=== PATIENT | female | born 2000 | race Caucasian/White ===

== ENCOUNTER 2022-04-11 14:37 | Outpatient (CLI) | payer MEDICAID, SELFPAY ==
--- NOTE | 2022-04-13 12:07 | W.PM.LAC.MC ---
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 Cm Jaundice: No Reason for Consult Reason for Consult: using nipple shield, slips off when mom doesn't use it Past Experience Past Experience: No Current Frequency of Day Feedings: every 2 - 3 hours around the clock Both Breasts: Yes Suck: fairly strong Latch: fairly wide Length of Time: 15 - 60 minutes Goals: as long as I can Pumping Pumping: Yes (when at work, randomly when at home) Quantity Pumped: 1 - 3 oz total each time Supplementing EMB Supplement: Yes (when mom is at work, when home she supplements after about 3 feedings/day) Formula Supplement: No (not for about the past week) Baby Elimination Number of Wet Diapers a Day: every feeding Number of BM a Day: every other feeding Breast/Nipple Condition Breast Information: WNL Engorgement: No Maternal Nipple Condition - Left: Short and Flat Nipple Maternal Nipple Condition - Right: Short and Flat Nipple Sore Nipples: No Onsite Pre-Feed weight: 4.236 kg Post-Feed weight: 4.302 kg Milk Transferred (mL): 66 Pre-Nursing Left Nipple: Within Normal Limits Pre-Nursing Right Nipple: Within Normal Limits Post-Nursing Left Nipple: Within Normal Limits Post-Nursing Right Nipple: Within Normal Limits Assessments/Interventions Assessments/Interventions: Assessments/Interventions Assessments/Interventions: Met with mom and this now 3 week old ex- term AGA baby for consult.? Mom reports she nursed for about the first week he was home, but one day he just started refusing to nurse.? For the next week she bottle fed a combination of EBM and formula but felt he was in increasing amounts of pain, for about the last week she's been nursing with a nipple shield then supplementing if needed with EBM.? States he's nursing every 2 - 3 hours for up to 60 minutes, then about three times/day she's supplementing with 1 - 2 oz (each time).? She uses the Haakaa during nursing sessions and the electric pump on occasion.? States she pumps between 1 - 3 oz total each time. Breasts WNL- symmetrical with rounded lower quadrants.? Nipples are flat and somewhat short, but amena with stimulation; no damage noted.? Baby has gained 42 grams/day since his last visit on 04/09 (55 grams/day since his visit on 03/22) and he's in the 60th percentile on the growth chart.? Per mom his delivery was uneventful- no caput/cephalohematoma, facial bruising, significant head molding, or shoulder dystocia.? States he seems to have good ROM when turning his head and moving his extremities.? His upper lip is easy to flange and he has a strong suck on a finger, however his tongue does not always extend past the gum line and he may have a posterior frenulum.? Mom reports he was dx'd with reflux on 04/09 and started on famotidine.? Mom attempted to latch baby in the cradle hold on the right side without the shield and was unsuccessful.? When she was verbally coached to hold him in the cross cradle position and shape her breast she was able to latch him without the nipple shield.? He nursed for several minutes before coming off, then had trouble re-latching without the shield.? When he finished on the right side she was able to latch him on the left starting with the shield, then removing it after a few minutes.? In total he nursed 45 minutes, transferring 66 ml.? He did not seem to be uncomfortable nursing today and had very little spit-up. ? Plan: 1. Continue to practice nursing on both sides every 2 - 3 hours (ok to go up to 4 hours overnight).? Can try starting with the shield then taking it off, or he may latch without it initially and need it later on.? Important not to let baby or mom get too frustrated.? Suggested keeping the nursing sessions to no longer than 40 minutes.? Reviewed that weaning from a nipple shield can be a long process. 2. OK to use the Haakaa while nursing.? Suggested she use the electric pump when at work and at least once daily so she has a supply for the caregiver.? Other times to pump would be when baby doesn't have a good nursing session or if she doesn't see milk in the shield. 3. Continue to supplement with EBM if he still seems hungry after nursing. 4. Will f/u with Dr. Cm for a 2 month [facility] and I will f/u by phone on 04/18/22.
--- OUTSIDE RECORDS SUMMARY | 2022-05-08 11:48 | XMS_ITS | Clinical Summary ---
:2000 Author Organization [facility] Address [address] [place] [address] Care Team Providers Name Role Phone Unavailable Primary Care Provider Unavailable Source Comments You are receiving this document as you are listed as the primary care provider,follow-up provider, or the patient has been referred to you for consultation.This is in compliance with the Medicare and Medicaid EHR Incentive Program,which states Providers who transition their patient to another setting of careor provider of care or refers their patient to another provider of care shouldprovide summarycare record for each transition of care or referral. [facility] Allergies Active Allergy Reactions Severity Noted Date Comments Polyethylene Glycol Hives High 01/30/2021 Medications No known medications Active Problems No known active problems Social History Tobacco Use Types Packs/Day Years Used Date Smoking Tobacco: Some Days Smokeless Tobacco: Current Sex Assigned at Date Recorded Not on file Last Filed Vital Signs Vital Sign Reading Time Taken Comments Blood Pressure 129/58 01/30/2021 3:28 PM CDT Pulse 118 01/30/2021 3:28 PM CDT Temperature 36.7 ??C (98 ??F) 01/30/2021 3:28 PM CDT Respiratory Rate 16 01/30/2021 3:28 PM CDT Oxygen Saturation 100% 01/30/2021 3:28 PM CDT Inhaled Oxygen Concentration - - Weight - - Height - - Body Mass Index - - Plan of Treatment Health Maintenance Due Date Last Done Comments Cervical Cancer Screening Due 1999 Chlamydia 1999 Hep C Screening (Preventive 1999 Services) COVID-19 Vaccine (#1) 02/21/2000 Pneumococcal (1 - PCV) 2005 HPV Vaccine (1 - 2-dose series) 2010 HIV Screening (Preventive 2015 Services) Adult Preventive Visit 2017 DTaP/Tdap/Td (1 - Tdap) 2018 Influenza (#1) 2022 Zoster/Shingles (1 of 2) 2049 HepA Aged Out No longer eligib le based on patient's age to complete this topic HepB Aged Out No longer eligib le based on patient's age to complete this topic Hib Aged Out No longer eligib le based on patient's age to complete this topic IPV (Polio) Aged Out No longer eligib le based on patient's age to complete this topic MCV4 Aged Out No longer eligib le based on patient's age to complete this topic
--- OUTSIDE RECORDS SUMMARY | 2022-05-08 11:48 | XMS_ITS | Encounter Summary ---
:2000 Author Organization [facility] Address [address], [place] [address] Care Team Providers Name Role Phone Unavailable Primary Care Provider Unavailable Reason for Visit Reason Comments Nausea Neck Pain NUMBNESS Encounter Details Date Type Department Care Team Description 01/30/2021 Hospital Encounter [place] [id number] Urgent Francisco Ag Nausea; Care MD [place] [address] [facility] [address] [place], [place] [phone] [id number] (Wo rk) Social History Tobacco Use Types Packs/Day Years Used Date Smoking Tobacco: Some Days Smokeless Tobacco: Current Sex Assigned at Date Recorded Not on file documented as of this encounter Last Filed Vital Signs Vital Sign Reading Time Taken Comments Blood Pressure 129/58 01/30/2021 3:28 PM CDT Pulse 118 01/30/2021 3:28 PM CDT Temperature 36.7 ??C (98 ??F) 01/30/2021 3:28 PM CDT Respiratory Rate 16 01/30/2021 3:28 PM CDT Oxygen Saturation 100% 01/30/2021 3:28 PM CDT Inhaled Oxygen Concentration - - Weight - - Height - - Body Mass Index - - documented in this encounter ED Notes Francisco Ag MD - 01/30/2021 3:53 PM CDT Was in the car driving - nausea, neck pain. Started feeling numbness in face and lips. Hands numb and tingly. Was breathing fast - feels better now as breathing is under control. Nausea is decreased. Arms are still numb feeling. SUBJECTIVE: Samanta Harden is a 20 y.o. female here with a friend, telling me that about 15 minutes ago while driving she started feeling nausea, got worried, develop some neck pain, started breathing fast with tingling and numbness in both upper extremities. She is better now. Has not had before. No headache, shortness of breath, chest pain. Posterior neck pain more than headache. Allergies: Peg-8 beeswax [polyethylene glycol] Past medical history: has no past medical history on file. Medications: No current facility-administered medications for this encounter. No current outpatient medications on file. OBJECTIVE: Vital Signs: BP 129/58 (BP Location: Right Arm, BP Cuff Size: Regular) Pulse (!) 118 Temp 36.7 ??C (98 ??F) (Oral) Resp 16 LMP 01/02/2021 SpO2 100% EXAM: She is worried but does not look physically ill. Normal skin color. Vitals as above. Heart with regular rhythm, mild tachycardia. Neurologic exam is nonfocal. Specifically, cranial nerves 2-12 grossly intact, neck is supple, she is not photophobic, speech is normal, strength and deep tendon reflexes grossly normal with good symmetry, gait is normal. ASSESSMENT: In my estimation we are looking at an anxiety reaction. Most likely tingling is secondary to hyperventilation. We talked about the possibility of in the context of her nausea and she said she will check it at home. PLAN: If symptoms do not continue to improve tonight and certainly tomorrow she needs further evaluation. Otherwise at any point with any new or worse symptoms she will be seen in the emergency department. The patient was discharged ambulatory and in stable condition. documented in this encounter Plan of Treatment Not on filedocumented as of this encounter Visit Diagnoses Diagnosis Nausea Nausea alone Tingling Disturbance of skin sensation Triage Assessment Note - Randi Antonio RN - 01/30/2021 3:28 PM CDT Was in the car driving - nausea, neck pain. Started feeling numbness in face and lips. Hands numb and tingly. Was breathing fast - feels better now as breathing is under control. Nausea is decreased. Arms are still numb feeling. documented in this encounter
== END 2022-04-11 14:38 | disposition home or self-care (01) ==
PROVIDERS: Visit Provider Advanced Practice Midwife
DX: Z39.1 Encounter for care and examination of lactating mother (principal)
CPT/HCPCS: 99211

== ENCOUNTER 2024-10-28 18:41 | Emergency (ER) | payer MEDICAID, SELFPAY ==
--- OUTSIDE RECORDS SUMMARY | 2024-10-28 18:42 | XMS_ITS | Clinical Summary ---
Demographics Address [address] [place] [address] Phone Email Address Preferred Language Unknown Marital Status Unknown or other Sabianist Affiliation Unknown Race Unknown Ethnic Group Unknown Author Organization [facility] Address [address] , [address] [place] [address] Phone Care Team Providers Care Claim Clerk Name Role Phone 4CareTeamCoordinator, 4CareTeamCoordinator Unava ilable Unavailable Conditions or Problems Problem Name Problem Code Onset Date Status Entry Date Provider Comment Standard Description Annotate Chronic migraine [id number] (SNOMED CT) Active Russell Gomez MD Transformed migraine Medications Medication Instructions Start Date Stop Date Generic Name NDC Provider Observed no known medication s at Medications Administered No information available. Allergies, Adverse Reactions, Alerts Allergy Name Reaction Description Start Date Severity Statu s Provider NO KNOWN DRUG ALLERGIES Mild Activ e Russell Gomez MD Results Date Name Value Unit Range Flag Description Office Visit: mail NKMED T Documentation of current medications (procedure) MEDS REVIEW Done Documenta tion of current medications (procedure) Internal Other: Verbal Autho rization/Emergency Contact - OBS VERBAL_EMER DONE Verbal au thorization and emergency contact Internal Other: Authorizatio n - OBS [email or web address] Yes Authoriza tion: Release of Information - Authorize [facility] - Payment and Healthcare Operations ROIAUTHOTHER Yes Authoriz ation: Release of Information - Authorize Others/Insurance - Payment and Healthcare Operations HIECONSENT Yes Consent To Release information to the Health Information Exchange (HIE) [email or web address] Yes Authorizat ion: Authorization for [facility] to leave messages, voicemail, send text messages, send emails AUTHRELHCARE Yes Authoriz ation: Release/Retrieval of Information to/from Healthcare Facilities, Pharmacy Benefit Payers and Providers AUTHPRIVPRAC Yes Authoriz ation: Notice of privacy practices AUTHBENEFIT Yes Authoriza tion: Assignment of Benefits and Payment Agreement Plan of Care Type Date Detail Pending order Follow up teleme dicine Pending Order exclud ed from report: Pending order Follow up teleme dicine Pending order Patient Instruct ions Procedures Code Procedure Name Date Entry Date ORDERS Follow up telemedicine 01/03 ORDERS Patient Instructions [facility]-[id number] Documentation of current medicatio ns CPT-49128 Occipital nerve bloc k (Greater ONB) unilateral CPT-97297 Lesser ONB/ 3rd ONB/ Auricular, unilatera l CPT-66502 Trigeminal nerve blo ck/ Supraorbital/ Supratrochlear x1 Vital Signs No information available. Immunizations No information available. Advance Directives No information available.
--- OUTSIDE RECORDS SUMMARY | 2024-10-28 18:42 | XMS_ITS | Clinical Summary ---
Author Organization [facility] Address [address], [place] [address] Care Team Providers Care Parts Technician Name Role Phone Unavailable Primary Care Provider Unavailabl e Source Comments You are receiving this document as you are listed as the primary care provider,follow-up provider, or the patient has been referred to you for consultation.This is in compliance with the Medicare andMedicaid EHR Incentive Program,which states Providers who transition their patient to another setting of careor provider of care or refers their patient to another provider of care shouldprovide summary care record for each transition of care or referral. [facility] Allergies Active Allergy Reactions Criticality Noted Date Comments Polyethylene Glycol Hives High 01/30/2021 Medications No known medications Active Problems No known active problems Social History Tobacco Use Types Packs/Day Years Used Date Smoking Tobacco: Some Days Smokeless Tobacco: Current Sex and Gender Information Value Date Recorded Sex Assigned at Not on file Gender Identity Not on file Sexual Orientation Not on file Last Filed Vital Signs Vital Sign Reading Time Taken Comments Blood Pressure 129/58 01/30/2021 3:28 PM CDT Pulse 118 01/30/2021 3:28 PM CDT Temperature 36.7 C (98 F) 01/30/2021 3:28 PM CDT Respiratory Rate 16 01/30/2021 3:28 PM CDT Oxygen Saturation 100% 01/30/2021 3:28 PM CDT Inhaled Oxygen Concentration - - Weight - - Height - - Body Mass Index - - Plan of Treatment Health Maintenance Due Date Last Done Comments Cervical Cancer Screening Due 1999 Chlamydia 1999 Hep C Screening (Preventive Services) 1999 Pneumococcal (1 - PCV) 2005 HPV Vaccine (1 - 3-dose series) 2014 HIV Screening (Preventive Services) 2015 Adult Preventive Visit 2017 DTaP/Tdap/Td (1 - Tdap) 2018 HepB (1) 2018 COVID-19 Vaccine (1 - 2023-2 5 season) 2024 Influenza (#1) 2024 Zoster/Shingles (1 of 2) 2049 HepA Aged Out No longer eligi ble based on patient's age to complete this topic Hib Aged Out No longer eligi ble based on patient's age to complete this topic IPV (Polio) Aged Out No longer eligi ble based on patient's age to complete this topic MCV4 Aged Out No longer eligi ble based on patient's age to complete this topic
[2024-10-28 18:57] VITALS: BP 137/88; PULSE 111; RESP 18; TEMP 36.6; O2SAT 96; BMI 24.4
--- NOTE | 2024-10-28 19:28 | ED.GENADULT ---
HPI - General Adult General Chief complaint: Unspecified Complaint, Adult Stated complaint: rectal bleeding Time Seen by Provider: 10/28/24 18:42 History of Present Illness HPI narrative: This 24-year-old female comes in reporting bright red blood from the rectum today. She thought that she was starting to have her menses but realized that this was leaking from her rectum. This was not part of a bowel movement but she does report bright red blood at the rectum when wiping. She does currently not have any abdominal pain but states that she does have worsening pains especially related to menses. She has not had any fevers and does not report any intolerance to food. She states that she has had some dysuria symptoms more recently with a feeling like she is not completely voiding her urine. She states that she has been having other occasions where the there is blood that she is wiping from her bottom coming from the rectum. Related Data Previous Rx's ?Medication ?Instructions ?Recorded hydrocortisone 2.5 %-pramoxine 1 % 1 applic topical BID PRN #59 mL 10/28/24 lotion (Analpram-HC) Allergies Allergy/AdvReac Type Severity Reaction Status Date / Time bee venom protein (honey bee) Allergy Severe Anaphylaxis Verified 02/28/23 08:23 Review of Systems Status of ROS: Reports: 10 or more systems reviewed and unremarkable except as noted in History and below Narrative: Constitutional: No fevers, no weight gain or loss. Eyes: No discharge. No vision changes. HENT: No congestion, no sore throat, no ear pain. Cardiovascular: No chest pain, no palpitations. Respiratory: No shortness of breath, no wheezes, no cough. Gastrointestinal: No vomiting, no diarrhea. Bright red blood per rectum as described above. Occasions of abdominal pain. Genitourinary: No dysuria, no hematuria. Musculoskeletal: Normal range of motion. Skin: No rashes, no pruritis. Neurological: No dizziness, weakness, sensory change, speech change. Endo/Heme/Allergies: No bruising or bleeding. No polydipsia. Pysch: no suicidality, no anxiety, no insomnia. All other systems reviewed and are negative. [facility] Social History Smoking Status: Current every day smoker Do you use any of these nicotine containing products: E-Cigarettes and Vaping Products Second hand tobacco smoke exposure: No How often do you have a drink containing alcohol: 2-4 times a month AUDIT-C Alcohol total score: 2 Non-prescribed substance use: denies use service: No Exam Narrative: Exam Narrative: Constitutional: Well-developed, well-nourished, no acute distress. HEENT: Normocephalic, atraumatic. Neck: Normal range of motion. Nontender. Supple. Heart: Regular. No murmurs. Normal rate. Intact distal pulses. Lungs: Clear to auscultation. No chest discomfort. No wheezes, rhonchi, or rales. Abdomen: Normal bowel sounds. Nontender. No rebound tenderness. Anus appears normal with some traces of bright red blood. She is wearing a pad. Genitalia: Deferred. Back: No midline tenderness. Normal range of motion. Extremities: Normal range of motion. No injury. Skin: Intact. No rash. Warm. No erythema or pallor. Neurologic: No altered sensation. No weakness. Alert and oriented. Psychiatric: No suicidality. No anxiety or depression. No insomnia. Nursing notes and vitals signs are reviewed. Const: Vital Signs, click to edit/add: Vital Signs - 24 hr 10/28/24 18:57 Temperature 97.9 F Pulse Rate [Pulse Oximeter] 111 H Respiratory Rate 18 Blood Pressure [Ri ght Upper Arm] 137/88 Pulse Oximetry 96 Oxygen Delivery Me thod Room Air Course Vital Signs Vital signs: Initial Vital Signs Temperature 97.9 F 10/28/24 18:57 Temperature Source Temporal Artery Scan 10/28/24 18:57 Pulse Rate 111 H 10/28/24 18:57 Pulse Rhythm Regular 10/28/24 18:57 Respiratory Rate 18 10/28/24 18:57 Blood Pressure 137/88 10/28/24 18:57 Blood Pressure Mean 104 10/28/24 18:57 Blood Pressure Position Sitting 10/28/24 18:57 Pulse Oximetry 96 10/28/24 18:57 Oxygen Delivery Method Room Air 10/28/24 18:57 Vital Signs Temperature 97.9 F 10/28/24 18:57 Pulse Rate 111 H 10/28/24 18:57 Respiratory Rate 18 10/28/24 18:57 Blood Pressure 137/88 10/28/24 18:57 Pulse Oximetry 96 10/28/24 18:57 Oxygen Delivery Method Room Air 10/28/24 18:57 Temperature 97.9 F 10/28/24 18:57 Pulse Rate 111 H 10/28/24 18:57 Respiratory Rate 18 10/28/24 18:57 Blood Pressure 137/88 10/28/24 18:57 Pulse Oximetry 96 10/28/24 18:57 Oxygen Delivery Method Room Air 10/28/24 18:57 Medical Decision Making MDM Narrative Medical decision making narrative: This patient comes in reporting rectal bleeding which has been recurrent. Her hemoglobin is in normal range. Other labs also are returning normal. He CT scan of the abdomen and pelvis is obtained. This returns with reassuring results. She does have some nonspecific changes in the colon that may represent a colitis. The patient's hemoglobin is in normal range. Her C-reactive protein and sed rate are slightly elevated but nothing to suggest a rheumatologic or autoimmune cause for her symptoms. I advised her to follow-up for a flexible sigmoidoscopy or colonoscopy. She did receive prescription for Toradol and Analpram. Lab Data Labs: Lab Results 10/28/24 10/28/24 Range/Units 19:35 19:43 WBC 8.36 (4.50-11.00) K/uL RBC 4.29 (4.00-5.20) m/uL Hgb 13.0 (12.0-16.0) gm/dL Hct 39.8 (33.0-51.0) % MCV 93 (80-100) fL MCH 30 (26-34) pg MCHC 33 (32-36) gm/dL RDW Coeff of Demetris 13.0 (11.5-15.5) % Plt Count 267 (140-440) K/uL Neut % (Auto) 61.5 (42.0-72.0) % Lymph % (Auto) 30.0 (20-44) % Meeker % (Auto) 4.7 (0.0-11.0) % Eos % (Auto) 3.2 (0.0-7.0) % Baso % (Auto) 0.6 (0.0-3.0) % Neut # (Auto) 5.14 (1.7-7.0) K/uL Lymph # (Auto) 2.51 (0.90-2.90) K/uL Meeker # (Auto) 0.40 (0.00-0.90) K/UL Eos # (Auto) 0.27 (0.00-0.50) K/uL Baso # (Auto) 0.05 (0.00-0.30) K/uL Abs Immat Gran (auto) 0.00 (0.00-0.30) K/uL Imm/Tot Granulo (auto) 0.0 % ESR 23 H (2-20) mm/hr Sodium 144 (135-149) mmol/L Potassium 4.5 (3.6-5.1) mmol/L Chloride 107 (96-114) mmol/L Carbon Dioxide 25 (20-32) mmol/L Anion Gap 12 (7-15) mEq/L BUN 10 (5-24) mg/dL Creatinine 0.7 (0.5-1.5) mg/dL Estimated Creat Clear 128.39 Estimated GFR 123 ml/min Glucose 93 (60-115) mg/dL Calcium 9.3 (8.4-10.6) mg/dL C-Reactive Protein < 0.5 L (0.5-1.0) mg/dL HCG, Qual Negative (Negative) Urine Color Yellow (Yellow) Urine Appearance Clear (Clear) Urine pH 6.0 (5.0-8.5) Ur Specific [employer] 1.010 (1.000-1.030) Urine Protein Negative (Negative) Urine Glucose (UA) Negative (Negative) Urine Ketones Negative (Negative) Urine Blood Negative (Negative) Urine Nitrite Negative (Negative) Urine Bilirubin Negative (Negative) Urine Urobilinogen 0.2 (0.2-1.0) Ur Leukocyte Esterase Negative (Negative) Urine RBC 0-2 (0-2) Urine WBC 0-2 (0-5) Ur Squamous Epith Cells Few (None-Few) Urine Bacteria None (None) Urine HCG, Qual Negative (Negative) Imaging Data CT scan - abdomen: Radiologist's impression: 1. Collapse of the majority of the colon with a few areas of wall irregularity, which may represent non-specific colitis. 2. Mild right pelvocaliectasis and ureterectasis, nonspecific but may be seen in the setting of recently passed stone. No evidence of obstructive uropathy on the current examination. Discharge Plan Discharge Clinical Impression: Bright red rectal bleeding Patient Disposition: Home, Self-Care Condition: Stable Additional Instructions: Follow-up with clinic for a flexible sigmoidoscopy or colonoscopy for further evaluation. Take medication as needed and directed. Return if worsening. Prescriptions: New Analpram-HC 2.5-1 % lotion 1 applic topical BID PRNQty: 59 0RF Rx Instructions: allow at least 3 hours between applications Follow Up/Referrals: Provider,Not a Local [Primary Care Provider] - Stand Alone Forms: [employer] Info Instructions
[2024-10-28 19:44] LABS: Basophils Absolute Auto 0.05 K/uL (0.00-0.30); Basophils Percent Auto 0.6 % (0.0-3.0); Eosinophils Absolute Auto 0.27 K/uL (0.00-0.50); Eosinophils Percent Auto 3.2 % (0.0-7.0); Hematocrit* 39.8 % (33.0-51.0); Lymphocytes Absolute Auto 2.51 K/uL (0.90-2.90); Mean Corpuscular HGB Conc 33 gm/dL (32-36); Mean Corpuscular Hemoglobin 30 pg (26-34); Mean Corpuscular Volume 93 fL (80-100); Monocytes Percent Auto 4.7 % (0.0-11.0); Neutrophils Absolute Auto 5.14 K/uL (1.7-7.0); Neutrophils Percent Auto 61.5 % (42.0-72.0); Platelet Count* 267 K/uL (140-440); Red Blood Count* 4.29 m/uL (4.00-5.20); White Blood Count* 8.36 K/uL (4.50-11.00)
[2024-10-28 19:55] LABS: Appearance Urine Clear (Clear); Bilirubin Urine Negative (Negative); Blood Urine Negative (Negative); Color Urine Yellow (Yellow); Glucose Urine Negative (Negative); Ketones Urine Negative (Negative); Leukocyte Esterase Urine Negative (Negative); Nitrite Urine Negative (Negative); Protein Urine Negative (Negative); Urobilinogen Urine 0.2 (0.2-1.0)
[2024-10-28 20:00] LABS: Ur HCG Qualitative* Negative (Negative)
[2024-10-28 20:05] LABS: Chloride* 107 mmol/L (96-114); Sodium* 144 mmol/L (135-149)
[2024-10-28 20:06] LABS: Potassium* 4.5 mmol/L (3.6-5.1)
[2024-10-28 20:08] LABS: Creatinine* 0.7 mg/dL (0.5-1.5); Est. Creatinine Clearance* 128.39; Estimated Glomerular Filt Rate 123 ml/min; Slide Review Reflex No
--- OUTSIDE RECORDS SUMMARY | 2024-10-28 20:08 | XMS_ITS | Clinical Summary ---
Author Organization [facility] Address [address], [place] [address] Care Team Providers Care Caustic Pump Operator Name Role Phone Unavailable Primary Care Provider [...]
--- OUTSIDE RECORDS SUMMARY | 2024-10-28 20:08 | XMS_ITS | Clinical Summary ---
Demographics Address [address] [place] [address] Phone Email Address Preferred Language Unknown Marital Status Unknown or other Christianity Affiliation Unknown Race Unknown Ethnic Group Unknown Author Organization [facility] Address [address] , [address] [place] [address] Phone Care Team Providers Care Rn Medication Name Role Phone 4CareTeamCoordinator, 4CareTeamCoordinator Unava ilable Unavailable Conditions or Problems Problem Name Problem Code Onset Date Status Entry Date Provider Comment Standard Description Annotate Chronic migraine 941241572 (SNOMED CT) Active Russell Gomez MD Transformed [...] Follow up telemedicine 01/03 ORDERS Patient Instructions [facility]-[id number] Documentation of current medicatio ns CPT-46462 Occipital nerve bloc k (Greater ONB) unilateral CPT-38347 Lesser ONB/ 3rd ONB/ Auricular, unilatera l CPT-97320 Trigeminal nerve blo ck/ Supraorbital/ Supratrochlear x1 Vital Signs No information available. Immunizations No information available. Advance Directives No information available.
[2024-10-28 20:09] LABS: RBC Urine 0-2 (0-2); Squamous Epithelial Cell Urine Few (None-Few); WBC Urine 0-2 (0-5)
[2024-10-28 20:09] LABS: Anion Gap 12 mEq/L (7-15); Blood Urea Nitrogen* 10 mg/dL (5-24); Calcium* 9.3 mg/dL (8.4-10.6); Carbon Dioxide* 25 mmol/L (20-32); Glucose* 93 mg/dL (60-115)
[2024-10-28 20:36] LABS: C Reactive Protein* < 0.5 mg/dL (0.5-1.0)
[2024-10-28 20:44] LABS: Erythrocyte SedimentationRate* 23 mm/hr (2-20)
[2024-10-28 20:51] LABS: HCG Qualitative Serum* Negative (Negative)
[2024-10-28 21:34] VITALS: BP 125/78; PULSE 90; RESP 18; TEMP 36.6; O2SAT 96
[2024-10-28 21:35] VITALS: BP 125/78; PULSE 90; RESP 18; TEMP 36.6
== END 2024-10-28 21:35 | disposition home or self-care (01) ==
PROVIDERS: Emergency Provider Emergency Medicine Emergency Medical Services
DX: K62.5 Hemorrhage of anus and rectum (principal)
CPT/HCPCS: 36415; 74177; 80048; 81001; 81025; 84703; 85025; 85651; 86140; 99284; Q9967

== ENCOUNTER 2025-02-06 14:56 | Emergency (ER) | payer MEDICAID, SELFPAY ==
--- OUTSIDE RECORDS SUMMARY | 2025-02-06 14:59 | XMS_ITS | Clinical Summary ---
Demographics Address [address] [place] [address] Phone Email Address Preferred Language Unknown Marital Status Unknown or other Advent Affiliation Unknown Race Unknown Ethnic Group Unknown Author Organization [facility] Address [address] , [address] [place] [address] Phone Care Team Providers Care Retail [employer] Store Area Supervisor Name Role Phone 4CareTeamCoordinator, 4CareTeamCoordinator Unava ilable Unavailable Conditions or Problems Problem Name Problem Code Onset Date Status Entry Date Provider Comment Standard Description Annotate Chronic migraine [id number] (SNOMED CT) Active Russell Gomez MD Transformed [...] Follow up telemedicine 01/03 ORDERS [facility] Inst[id number] Documentation of current medicatio ns CPT-23507 Occipital nerve bloc k (Greater ONB) unilateral CPT-22226 Lesser ONB/ 3rd ONB/ Auricular, unilatera l CPT-57711 Trigeminal nerve blo ck/ Supraorbital/ Supratrochlear x1 Vital Signs No information available. Immunizations No information available. Advance Directives No information available.
--- OUTSIDE RECORDS SUMMARY | 2025-02-06 14:59 | XMS_ITS | Clinical Summary ---
Author Organization [facility] Address [address] [place] [address] Care Team Providers Care Lopper Name Role Phone Unavailable Primary Care Provider [...] Smoking Tobacco: Some Days Smokeless Tobacco: Current Comments No Sex and Gender Information Value Date Recorded Sex Assigned at Not on file Legal Sex Female 3:22 PM CDT Gender Identity Not on file Sexual Orientation [...] 1999 Hep C Screening (Preventive Services) 1999 HPV Vaccine (1 - 3-dose series) 2014 HIV Screening (Preventive Services) 2015 Adult Preventive Visit 2017 DTaP/Tdap/Td Vaccine (1 - Tdap) 2018 HepB Vaccine (1) 2018 Pneumococcal Vaccine (1 of 2 - PCV) 2018 COVID-19 Vaccine (1 - 2023-2 5 season) 2024 Influenza Vaccine (Season Ended) 2025 Zoster/Shingles Vaccine (1 of 2) 2049 HepA Vaccine Aged Out No longer eligi ble based on patient's age to complete this topic Hib Vaccine Aged Out No longer eligi ble based on patient's age to complete this topic IPV (Polio) Vaccine Aged Out No longe r eligible based on patient's age to complete this topic MCV4 Vaccine Aged Out No longer eligi ble based on patient's age to complete this topic Meningococcal B Vaccine Aged Out No l onger eligible based on patient's age to complete this topic
[2025-02-06 15:26] VITALS: BP 125/81; PULSE 121; RESP 18; TEMP 38.2; O2SAT 99; BMI 23.3
--- NOTE | 2025-02-06 16:00 | ED_ITS ---
HPI - General Adult General Chief complaint: Sore Throat Stated complaint: sore throat/nausea/fever/headache Time Seen by Provider: 02/06/25 15:26 History of Present Illness HPI narrative: This 24-year-old female comes in with her son and reports that both are experiencing sore throat symptoms. This patient states that she had some nausea and vomiting yesterday and sore throat with purulence today. She does arrive with a temperature of 100.8? F. the patient states that she just wants to be checked for strep infection. She does not report any shortness of breath. Related Data Previous Rx's ?Medication ?Instructions ?Recorded amoxicillin 500 mg capsule 500 mg PO TID 7 days #21 caps 02/06/25 Allergies Allergy/AdvReac Type Severity Reaction Status Date / Time bee venom protein (honey bee) Allergy Severe Anaphylaxis Verified 02/06/25 15:32 Review of Systems Status of ROS: Reports: 10 or more systems reviewed and unremarkable except as noted in History and below Narrative: Constitutional: No weight gain or loss. Eyes: No discharge. No vision changes. HENT: No congestion, no ear pain. She reports a sore throat. Cardiovascular: No chest pain, no palpitations. Respiratory: No shortness of breath, no wheezes, no cough. Gastrointestinal: No abdominal pain, no diarrhea. Yesterday she had vomiting. Genitourinary: No dysuria, no hematuria. Musculoskeletal: Normal range of motion. Skin: No rashes, no pruritis. Neurological: No dizziness, weakness, sensory change, speech change. Endo/Heme/Allergies: No bruising or bleeding. No polydipsia. Pysch: no suicidality, no anxiety, no insomnia. All other systems reviewed and are negative. [facility] Social History Smoking Status: Current every day smoker Do you use any of these nicotine containing products: E-Cigarettes and Vaping Products Second hand tobacco smoke exposure: No How often do you have a drink containing alcohol: 2-4 times a month AUDIT-C Alcohol total score: 2 Non-prescribed substance use: denies use service: No Exam Narrative: Exam Narrative: Constitutional: Well-developed, well-nourished, no acute distress. HEENT: Normocephalic, atraumatic. Pharyngeal erythema with exudate. Neck: Normal range of motion. Nontender. Supple. Heart: Regular. No murmurs. Normal rate. Intact distal pulses. Lungs: Clear to auscultation. No chest discomfort. No wheezes, rhonchi, or ra les. Abdomen: Normal bowel sounds. Nontender. No rebound tenderness. Genitalia: Deferred. Back: No midline tenderness. Normal range of motion. Extremities: Normal range of motion. No injury. Skin: Intact. No rash. Warm. No erythema or pallor. Neurologic: No altered sensation. No weakness. Alert and oriented. Psychiatric: No suicidality. No anxiety or depression. No insomnia. Nursing notes and vitals signs are reviewed. Const: Vital Signs, click to edit/add: Vital Signs - 24 hr 02/06/25 15:26 Temperature 100.8 F H Pulse Rate [Pulse Oximeter] 121 H Respiratory Rate 18 Blood Pressure [Ri ght Upper Arm] 125/81 Pulse Oximetry 99 Oxygen Delivery Me thod Room Air Course Vital Signs Vital signs: Initial Vital Signs Temperature 100.8 F H 02/06/25 15:26 Temperature Source Temporal Artery Scan 02/06/25 15:26 Pulse Rate 121 H 02/06/25 15:26 Respiratory Rate 18 02/06/25 15:26 Blood Pressure 125/81 02/06/25 15:26 Blood Pressure Mean 95 02/06/25 15:26 Blood Pressure Position Sitting 02/06/25 15:26 Pulse Oximetry 99 02/06/25 15:26 Oxygen Delivery Method Room Air 02/06/25 15:26 Vital Signs Temperature 100.8 F H 02/06/25 15:26 Pulse Rate 121 H 02/06/25 15:26 Respiratory Rate 18 02/06/25 15:26 Blood Pressure 125/81 02/06/25 15:26 Pulse Oximetry 99 02/06/25 15:26 Oxygen Delivery Method Room Air 02/06/25 15:26 Temperature 100.8 F H 02/06/25 15:26 Pulse Rate 121 H 02/06/25 15:26 Respiratory Rate 18 02/06/25 15:26 Blood Pressure 125/81 02/06/25 15:26 Pulse Oximetry 99 02/06/25 15:26 Oxygen Delivery Method Room Air 02/06/25 15:26 Medications Administered Medications: Discontinued Medications Generic Name Dose Route Start Last Admin Trade Name Freq PRN Reason Stop Dose Admin Dexamethasone 10 mg 02/06/25 16:00 02/06/25 16:08 Dexamethasone 10 Mg/Ml Inj PO 02/06/25 16:01 10 mg ONCE ONE Administration Medical Decision Making MDM Narrative Medical decision making narrative: This patient comes in reporting sore throat and fever as described above. A rapid strep test is obtained and returns positive. She did receive an oral dose of dexamethasone 10 mg and a prescription for amoxicillin. Lab Data Labs: Lab Results 02/06/25 Range/Units 15:36 Group A Strep DNA DETECTED A (Not Detectd) Discharge Plan Discharge Clinical Impression: Acute streptococcal pharyngitis Patient Disposition: Home, Self-Care Condition: Stable Additional Instructions: Take medication as prescribed. Use [id number] medicines also as needed and directed. Follow up with MD return if worsening. Prescriptions: New amoxicillin 500 mg capsule 500 mg PO TID 7 Days Qty: 21 0RF Follow Up/Referrals: Provider,Not a Local [Primary Care Provider] - Stand Alone Forms: [employer] Info Instructions
[2025-02-06] MEDS: dexAMETHasone 10 MG/ML inj PO (16:08)
[2025-02-06 16:23] LABS: Strep A DNA Probe* DETECTED (Not Detectd)
--- OUTSIDE RECORDS SUMMARY | 2025-02-06 16:52 | XMS_ITS | Clinical Summary ---
Author Organization [facility] Address [address] [place] [address] Care Team Providers Care Manager Advertising Name Role Phone Unavailable Primary Care Provider [...]
== END 2025-02-06 16:51 | disposition home or self-care (01) ==
PROVIDERS: Emergency Provider Emergency Medicine Emergency Medical Services
DX: J02.0 Streptococcal pharyngitis (principal); F17.210 Nicotine dependence, cigarettes, uncomplicated
CPT/HCPCS: 87651; 99283; 99284; J1100

== ENCOUNTER 2025-07-01 09:31 | Outpatient (CLI) | payer BC, SELFPAY | END 2025-07-01 09:32 | disposition home or self-care (01) | LOC: NFLDREF 07-08 04:13 | PROVIDERS: Visit Provider Physician Assistant Surgical | DX: N30.01 Acute cystitis with hematuria (principal) | CPT/HCPCS: 87086 ==